=== PATIENT | male | born 1940 ===

== ENCOUNTER 2016-06-05 09:26 | Day surgery (SDC) | payer OTHER, MEDICARE ==
[~2016-06-05] VITALS: Ht 185.4 cm; Wt 85.8 kg
[2016-06-05] MEDS ORDERED: CARVEDILOL3.125 MG PO (10:35)
[2016-06-05] MEDS ORDERED: CEPHALEXIN500 MG PO (10:36)
[2016-06-05] MEDS ORDERED: TAMSULOSIN HCL0.4 MG PO (10:37)
[2016-06-05] MEDS ORDERED: OMEPRAZOLE20 M1 PO (10:37)
[2016-06-05 18:37] VITALS: BP 184/61
--- NOTE | 2016-06-05 20:47 | OPERATIVE REPORT ---
DATE OF SURGERY: 06/05/2016 SURGEON: Hi Mcnamara MD PREOPERATIVE DIAGNOSIS: 1. Basal cell carcinoma, cutaneous right forehead, full-thickness defect POSTOPERATIVE DIAGNOSIS: 1. Basal cell carcinoma, cutaneous right forehead, full-thickness defect PROCEDURE PERFORMED: 1. Mohs reconstruction with dual opposing local tissue advancement flaps COMPLICATIONS: No complications. ESTIMATED BLOOD LOSS: 30 mL. FLUIDS: Total IV fluids was 1 L. DRAINS: No drains were placed. PATHOLOGY SPECIMEN: No specimens were sent. ANESTHESIA: General endotracheal anesthetic. INDICATIONS: Full-thickness defect to the right forehead with sacrifice of frontalis muscle and frontalis branch of the facial nerve intervening the right frontalis muscle. The right brow elevation was nonfunctional preoperatively. SURGICAL FINDINGS: Local tissue advancement flap laterally and inferiorly based, with preauricular incisions was utilized along with a rhomboid medial to lateral advancement flap. The total surface area of combined primary and secondary defects measuring 6 x 25 sq. cm or 150 sq. cm. SURGICAL TECHNIQUE: After reviewing informed consent with the patient and his he was taken back to the operating room for anesthesia induction. Once intubated, he was positioned, slightly turned to the left with the head propped up. Time-out was performed in the usual fashion. The right face and the frontoparietal scalp were then prepped and draped in sterile fashion. Local anesthetic was infiltrated into the planned incision, as well as the areas of planned flap elevation and that is of the primary defect prior to the patient's wound and right face and scalp being prepped. After the patient was draped, 15-blade scalpel was used to make the flap incisions. The flaps were then elevated in the subcutaneous plane near the area of the primary defect extending more inferiorly along the inferolateral advancement flap. Blunt dissection was taken down along the plane of the temporalis fascia or the deep temporal fascia down to the level of the zygomatic arch across the frontalis muscle. Dissection was also taken in the subgaleal plane across the forehead to the midline to preserve the integrity of the supratrochlear artery on the right side. After elevating the flaps making the flap incision, the flaps were mobilized into the primary defect of the rhomboid flap from the paramedian forehead. It was rotated and a standing cone deformity was excised just above the right brow along the suprabrow crease. Then 2-0 Vicryl sutures were used for reapproximation of deeper soft tissues and fascia. Then 4-0 Vicryl was utilized for deep dermal reapproximation and the skin was closed with running locking simple interrupted 4-0 nylon sutures across the forehead and right face, across the hair-bearing scalp areas. Where incisions were made closure was completed superficially with skin carlos. Bipolar electrocauterization was utilized sparingly for hemostasis after completing the procedure. Xeroform gauze dressing was placed in the area left to heal by secondary intention in the central forehead just below the hairline. This was secured in place with 2-0 and 4-0 Polysorb sutures. Afterwards, the face was cleaned and dried. Antibiotic ointment was placed across the preauricular and scalp suture line, the forehead suture lines were covered with Mastisol and trimmed, 1/2 inch Steri-Strips in the skin. The patient was then awakened, extubated, and transferred to the recovery area in stable condition with no evidence of acute postoperative complications.
== END 2016-06-05 18:46 | disposition home or self-care (01) ==
LOC: SCU SRH 09:26 → OR SRH 09:26 → SCU SRH 09:30 → OR SRH 11:00
PROVIDERS: Otolaryngology
PROC: 0HX1XZZ Transfer Face Skin, External Approach (ICD-10-PCS; principal; 2016-06-05 11:00)
DX: C44.319 Basal cell carcinoma of skin of other parts of face (principal); I10 Essential (primary) hypertension
CPT/HCPCS: 29229; 29240; 50004; 60001; 70002; 80102; 80118; 84038; 84044